=== PATIENT | female | born 1995 | race Caucasian/White ===

== ENCOUNTER 2023-05-05 07:47 | Outpatient (CLI) | payer OTHER, SELFPAY ==
--- NOTE | ~2023-05-05 | US_ITS ---
Pelvic ultrasound. Clinical History: Pelvic pain Technique: Realtime transabdominal and transvaginal scanning of the pelvis was performed. Color flow Doppler and Doppler spectral analysis were performed. Findings: The uterus is not visualized. The right ovary measures 4.6 x 3.3 x 3.3 cm. There are at least 2 complex right ovarian cyst, largest of which measures 2.9 cm in maximum diameter, most compatible with hemorrhagic cysts. The left ovary is not visualized. No significant left ovarian or adnexal mass is seen. There is no evidence of free fluid in the cul de sac. Impression: 2 hemorrhagic cysts in the right ovary, larger measuring 2.9 cm in maximum diameter. Uterus and left ovary are not seen. Reviewed, dictated and finalized at location . [facility] [facility] Impression: 2 hemorrhagic cysts in the right ovary, larger measuring 2.9 cm in maximum diam eter. Uterus and left ovary are not seen.
== END 2023-05-05 07:48 | disposition home or self-care (01) ==
LOC: CHSIMG 07:49
PROVIDERS: PCP Family Medicine; Visit Provider Nurse Practitioner Family
DX: R10.31 Right lower quadrant pain (principal); N83.201 Unspecified ovarian cyst, right side
CPT/HCPCS: 76856

== ENCOUNTER 2023-11-24 06:00 | Emergency (ER) | payer OTHER, SELFPAY ==
--- NOTE | ~2023-11-24 | XR_ITS ---
EXAMINATION: XR chest 1V portable DATE: 11/24/2023 08:06 INDICATION: Infection. TECHNIQUE: A single frontal view of the chest was obtained. COMPARISON: None. FINDINGS: There is no pneumonia, pleural effusion, or pneumothorax. The heart size is normal. IMPRESSION: 1. No acute cardiopulmonary disease. Reviewed, dictated and finalized at location E.
[2023-11-24 06:02] VITALS: BP 99/63; PULSE 95; RESP 15; TEMP 36.4; O2SAT 100
--- NOTE | 2023-11-24 06:31 | ECG_ITS ---
SEE SCANNED COPY FOR CONFIRMED REPORT MTDD
[2023-11-24 06:41] VITALS: BP 93/58; PULSE 83; RESP 17; O2SAT 100
[2023-11-24 06:58] LABS: Basophils Percent Auto 0.4 % (0.2-1.2); Eosinophils Absolute Auto 0.2 K/mm3 (0-0.3); Eosinophils Percent Auto 2.2 % (0-4.4); Hematocrit 37.1 % (37.0-47.0); Hemoglobin 12.4 g/dL (12.0-15.0); Immature Granulocyte Absolute 0.02 K/mm3 (0.00-0.031); Immature Granulocyte Percent A 0.3 % (0-0.5); Lymphocytes Absolute Auto 1.93 K/mm3 (0.9-3.2); Lymphocytes Percent Auto 27.9 % (18.3-44.2); Mean Corpuscular HGB Conc 33.4 g/dl (32-36); Mean Corpuscular Volume 98.7 fl (80-100); Mean Platelet Volume 10.2 fl (7.4-10.4); Monocytes Absolute Auto 0.6 K/mm3 (0.1-0.6); Neutrophils Absolute Auto 4.2 K/mm3 (1.3-6.7); Neutrophils Percent Auto 60.2 % (45.5-73.1); Platelet Count Result 188 k/mm3 (150-375); Red Blood Count 3.76 M/mm3 (4.2-5.4); Red Cell Distribution Width 12.7 % (11.5-14.5); White Blood Count 6.9 K/mm3 (4.5-10.0)
[2023-11-24 07:02] LABS: Alanine Aminotransferase 14 U/L (6-35); Albumin Level 4.3 g/dL (3.5-5.1); Alkaline Phosphatase 50 U/L (38-126); Anion Gap 6 mmol/L (4-12); Aspartate Amino Transferase 23 U/L (14-36); Bilirubin,Total 0.5 mg/dL (0.2-1.3); Blood Urea Nitrogen 4 mg/dL (7-17); Carbon Dioxide 26 mmol/L (22-30); Chloride 107 mmol/L (98-107); Estimated CRCL calculation 75 ml/min; Estimated Glomerular Filt Rate > 60; Glucose 80 mg/dL (65-110); Potassium 3.5 mmol/L (3.4-5.0); Sodium 139 mmol/L (137-145)
[2023-11-24] MEDS: SODIUM CHLORIDE 0.9% IV 1,000 ML 999 ML IV CONT (07:04)
--- NOTE | 2023-11-24 07:27 | ED.DIZZY ---
HPI - Dizziness General Chief Complaint: Dizziness Stated Complaint: Chest burning, eyes watery, dizzy Time Seen by Provider: 11/24/23 06:55 History of Present Illness HPI Narrative: Patient is a 28-year-old female who presents to the emergency department this morning complaining of dizziness. Patient states that dizziness is more of a light headed near syncopal episode rather than room spinning episode. Patient also states that she has been have some body aches, feeling fatigued, having some chest burning and feeling nauseous. Symptoms started yesterday. Patient also complains of a headache. 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 She denies any fevers or chills at home, denies any exposure to sick contacts and going down any urinary symptoms including dysuria or hematuria. Patient also denies any URI symptoms. No additional symptoms or concerns at this time. Related Data Allergies Allergy/AdvReac Type Severity Reaction Status Date / Time acetaminophen [From Vicodin] Allergy Itching Verified 11/24/23 06:44 doxycycline Allergy Itching Verified 11/24/23 06:44 hydrocodone [From Vicodin] Allergy Itching Verified 11/24/23 06:44 tramadol Allergy Itching Verified 11/24/23 06:44 Review of Systems Review of Systems: All systems are reviewed and are negative unless stated otherwise in the HPI. Exam Narrative: General: Alert, awake, afebrile, in no acute distress. HEENT: PERRL, no rhinorrhea, no post nasal drip, oropharynx clear. Cardiovascular: Regular rate and rhythm, no murmurs, rubs or gallops, no peripheral edema. Respiratory: Clear to auscultation bilaterally, no tachypnea, no wheezing, no rhonchi, no rubs, no respiratory distress. Abdomen: Soft, nontender, nondistended, no rebound, no guarding, no peritoneal signs. Musculoskeletal: No joint swelling or deformity, normal muscle tone. Skin: No rashes or petechia, no signs of infection. Psychiatric: Alert and oriented, normal behavior and judgment for situation. Neurological: Alert and oriented to person, place, and time. Follows all commands. No focal deficits, speech is clear and fluent. Course Vital Signs Vital signs: Vital Signs Temperature 97.5 F L 11/24/23 06:02 Pulse Rate 95 11/24/23 06:02 Respiratory Rate 15 11/24/23 06:02 Blood Pressure 99/63 L 11/24/23 06:02 Pulse Oximetry 100 11/24/23 06:02 Oxygen Delivery Room Air 11/24/23 06:02 Temperature 97.5 F L 11/24/23 06:02 Pulse Rate 78 11/24/23 09:18 Respiratory Rate 16 11/24/23 09:18 Blood Pressure 101/71 11/24/23 09:18 Pulse Oximetry 99 11/24/23 09:18 Oxygen Delivery Room Air 11/24/23 06:02 MDM - Dizziness MDM Narrative Medical decision making narrative: The patient was evaluated by myself in the emergency department. History is obtained from patient who is an independent historian and physical exam was performed. External medical records were reviewed at this time. IV was established and pertinent tests were ordered. Patient was administered a 1 L IV fluid bolus with normal saline. EKG was obtained which revealed sinus rhythm rate of 72 beats per minute. No ST changes, T wave inversions or evidence of acute ischemia. EKG was independently interpreted by me and is currently pending official cardiology read. Laboratory results obtained revealing no acute process. Imaging studies obtained included CXR which was independently interpreted by me revealing no acute cardiopulmonary process, which is pending final radiology interpretation. Differential diagnosis considerations include acute viral syndrome, infectious process such as pneumonia and dehydration. Comorbidities impacting this visit include none. I have evaluated and discussed social determinants of health with the patient that could potentially impact subsequent diagnosis and treatment plans. On repeat assessment of the patient,
[2023-11-24 07:40] VITALS: BP 97/71; PULSE 62; RESP 16; O2SAT 97
[2023-11-24 07:56] LABS: Influenza A QL RT-PCR Negative (Negative); Influenza B QL RT-PCR Negative (Negative); RSV RNA, RT-PCR Negative (Negative); SARS-CoV-2 RNA PCR Negative (Negative)
[2023-11-24 09:18] VITALS: BP 101/71; PULSE 78; RESP 16; O2SAT 99
[2023-11-24 09:42] VITALS: BP 104/83; PULSE 91; RESP 18; O2SAT 98
== END 2023-11-24 09:43 | disposition home or self-care (01) ==
PROVIDERS: Student in an Organized Health Care Education/Training Program; Emergency Provider Emergency Medicine; PCP Family Medicine
DX: B34.9 Viral infection, unspecified (principal); Z20.822 Contact with and (suspected) exposure to COVID-19; I45.10 Unspecified right bundle-branch block
CPT/HCPCS: 36415; 71045; 80053; 85025; 87637; 93005; 96360; 99284; J7030

== ENCOUNTER 2024-02-05 13:43 | Emergency (ER) | payer OTHER, SELFPAY ==
[2024-02-05 13:48] VITALS: BP 109/74; PULSE 71; RESP 16; TEMP 36.8; O2SAT 99
[2024-02-05 14:20] LABS: Basophils Percent Auto 0.4 % (0.2-1.2); Eosinophils Absolute Auto 0.8 K/mm3 (0-0.3); Eosinophils Percent Auto 8.2 % (0-4.4); Hematocrit 37.1 % (37.0-47.0); Hemoglobin 12.5 g/dL (12.0-15.0); Immature Granulocyte Absolute 0.02 K/mm3 (0.00-0.031); Immature Granulocyte Percent A 0.2 % (0-0.5); Lymphocytes Absolute Auto 2.61 K/mm3 (0.9-3.2); Lymphocytes Percent Auto 27.5 % (18.3-44.2); Mean Corpuscular HGB Conc 33.7 g/dl (32-36); Mean Corpuscular Volume 97.9 fl (80-100); Mean Platelet Volume 10.2 fl (7.4-10.4); Monocytes Absolute Auto 0.5 K/mm3 (0.1-0.6); Monocytes Percent Auto 5.6 % (2.6-8.5); Neutrophils Absolute Auto 5.5 K/mm3 (1.3-6.7); Neutrophils Percent Auto 58.1 % (45.5-73.1); Platelet Count Result 187 k/mm3 (150-375); Red Blood Count 3.79 M/mm3 (4.2-5.4); Red Cell Distribution Width 12.6 % (11.5-14.5); White Blood Count 9.5 K/mm3 (4.5-10.0)
--- NOTE | 2024-02-05 14:21 | ED.GENADULT ---
HPI - General Adult General Chief complaint: Abdominal Pain Stated complaint: abdominal pain Time Seen by Provider: 02/05/24 13:50 History of Present Illness HPI narrative: This is a 28-year-old female who presents to the emergency room with a chief complaint of epigastric abdominal pain. Patient has a history of prior cholecystectomy and hysterectomy. She states that for last 2 weeks she has been having intermittent epigastric abdominal pain that does not radiate anywhere. No associated nausea, vomiting, diarrhea, constipation, dysuria, hematuria, vaginal pain or discharge. No lower uterine or abdominal pain. Patient states she has never had pain like this in the past. Denies any alcohol intake or history of pancreatitis. Was otherwise in her normal state of health with no recent trauma, injuries or illnesses. Pain comes on without any prodromal symptoms and without warning. No associated symptoms with meals or using the restroom. No history of kidney stones. Related Data Allergies Allergy/AdvReac Type Severity Reaction Status Date / Time acetaminophen [From Vicodin] Allergy Itching Verified 02/05/24 13:50 doxycycline Allergy Itching Verified 02/05/24 13:50 hydrocodone [From Vicodin] Allergy Itching Verified 02/05/24 13:50 tramadol Allergy Itching Verified 02/05/24 13:50 Review of Systems Review of Systems: As reviewed above in the HPI Exam Narrative: GENERAL: [Well-appearing, well-nourished, and in no acute distress.] HEAD: [Normocephalic, atraumatic.] EYES: [PERRLA and EOMI.] ENT: Nares clear, no rhinorrhea or epistaxis. Mucous membranes moist. NECK: Supple. CHEST: [Clear to auscultation. No respiratory distress.] HEART: [Regular rate and rhythm]. No murmur heard. [Normal peripheral pulses.] ABDOMEN: [Soft, nondistended], tender in the epigastrium without any guarding, no peritonitis,, [No rigidity or guarding] EXTREMITIES: Normal range of motion. [No edema.] SKIN: Warm, dry, no rash. NEURO: [No focal deficits]. Alert and oriented [x3.] PSYCH: [Normal mood and affect.] Course Vital Signs Vital signs: Vital Signs Temperature 36.8 C 02/05/24 13:48 Pulse Rate 71 02/05/24 13:48 Respiratory Rate 16 02/05/24 13:48 Blood Pressure 109/74 02/05/24 13:48 Pulse Oximetry 99 02/05/24 13:48 Temperature 36.8 C 02/05/24 13:48 Pulse Rate 71 02/05/24 13:48 Respiratory Rate 16 02/05/24 13:48 Blood Pressure 109/74 02/05/24 13:48 Pulse Oximetry 99 02/05/24 13:48 Medical Decision Making MDM Narrative Medical decision making narrative: This is a 28-year-old female with a previous cholecystectomy and hysterectomy who presents with epigastric abdominal discomfort. Pain has been going on intermittently for last 2 weeks. She has a reassuring exam without any abdominal distention or bloating. No signs of peritonitis or surgical abdomen present. She is tender in the epigastrium without radiation. No lower abdominal or pelvic pain. No GI or symptoms otherwise. Normal reassuring vital signs and appears well without distress. She has had previous EGD and colonoscopy in July of this year without any concerning findings according to herself. Differential diagnosis at this time includes gastroenteritis, gastritis, pain from previous incisions/adhesions, pancreatitis, less likely inflammatory bowel or colitis. Low suspicion ACS given her lack of risk factors. She was given pain relief with Pepcid, Maalox, morphine and Zofran. Laboratory studies were obtained including a CBC, CMP, lipase. A 12 lead EKG was obtained. Upon re-evaluation patient had symptomatic resolution and expressed relief of her pain. Her laboratory studies were very reassuring without any leukocytosis, anemia. She has normal renal and hepatic function panel. EKG was nonischemic, interpretation. Given her symptomatic resolution and reassuring workup she is stable for discharge home at this time. She was gi
[2024-02-05 14:22] LABS: Add Urine Microscopic? NO; Appearance Urine Clear (Clear); Bilirubin Urine Negative (Negative); Blood Urine Negative (Negative); Color Urine Yellow (Yellow); Glucose Urine UA Negative (Negative); Ketones Urine Negative (Negative); Leukocyte Esterase Ur Negative LEU/UL (Negative); Nitrate Urine Negative (Negative); Protein Urine Negative (Negative); Specific Grav Ur 1.011 (1.001-1.035); Urobilinogen Urine 0.2 mg/dL (<2.0); pH Urine 5.5 (5.0-9.0)
--- NOTE | 2024-02-05 14:22 | ECG_ITS ---
Test Date: 2024-02-05 14:44:54 Measurements Intervals [place] Rate: 76 P: 52 [place]: 148 QRS: 51 QRSD: 97 T: 10 QT: 402 QTc: 454 Interpretive Statements SINUS RHYTHM POSSIBLE RIGHT VENTRICULAR CONDUCTION DELAY [RSR (QR) IN V1/V2] BORDERLINE ECG No previous ECG available for comparison Electronically Signed On 02-06-2024 13:34:49 CDT by Arias Patel M.D.
[2024-02-05] MEDS: LACTATED RINGERS 1,000 ML 999 ML IV CONT (14:26)
[2024-02-05] MEDS: ONDANSETRON INJ 4 MG/2 ML VIAL IV PUSH (14:29)
[2024-02-05] MEDS: MORPHINE SULFATE (*CRX) 4 MG/ML INJ IV PUSH (14:30)
[2024-02-05] MEDS: FAMOTIDINE 20 MG/2 ML VIAL IV PUSH (14:30)
[2024-02-05] MEDS: MAG HYDROX/AL HYDROX/SIMETH 30 ML UDC PO (14:33)
[2024-02-05 14:40] LABS: Alanine Aminotransferase 24 U/L (6-35); Albumin Level 4.7 g/dL (3.5-5.1); Alkaline Phosphatase 68 U/L (38-126); Anion Gap 10 mmol/L (4-12); Aspartate Amino Transferase 24 U/L (14-36); Bilirubin,Total 0.2 mg/dL (0.2-1.3); Blood Urea Nitrogen 10 mg/dL (7-17); Calcium 9.1 mg/dL (8.4-10.2); Carbon Dioxide 26 mmol/L (22-30); Chloride 101 mmol/L (98-107); Estimated CRCL calculation 85 ml/min; Estimated Glomerular Filt Rate > 60; Glucose 90 mg/dL (65-110); Lipase 69 U/L (23-300); Potassium 3.5 mmol/L (3.4-5.0); Sodium 137 mmol/L (137-145)
[2024-02-05 16:43] VITALS: BP 110/72; PULSE 72; RESP 18; O2SAT 99
== END 2024-02-05 16:45 | disposition home or self-care (01) ==
PROVIDERS: Emergency Provider Student in an Organized Health Care Education/Training Program; PCP Family Medicine
DX: R10.13 Epigastric pain (principal); Z90.49 Acquired absence of other specified parts of digestive tract; Z90.710 Acquired absence of both cervix and uterus; R94.31 Abnormal electrocardiogram [ECG] [EKG]
CPT/HCPCS: 36415; 80053; 81003; 83690; 85025; 93005; 96361; 96374; 96375; 99284; A9270; J2270; J2405; J7120